=== PATIENT | female | born 1970 | race African-American/Black ===

== ENCOUNTER 2021-01-09 14:31 | Emergency (ER) | payer OTHER, SELFPAY ==
--- NOTE | ~2021-01-09 | XR_ITS ---
EXAMINATION: XR CHEST CLINICAL INFORMATION: Cough COMPARISON: None TECHNIQUE: Frontal view of the chest was obtained. FINDINGS: The cardiac silhouette does not appear enlarged. The thoracic aorta is tortuous. Hilar and mediastinal contours are otherwise unremarkable. The lungs are clear. There is no pleural effusion or pneumothorax. There are degenerative changes of the thoracic spine and curvature to the right. XR/XR chest 1V IMPRESSION: No evidence for acute disease in the chest.
[2021-01-09 14:56] VITALS: BP 156/94; PULSE 103; RESP 18; O2SAT 99; BMI 40.3
--- NOTE | 2021-01-09 16:22 | ED.URI ---
HPI - URI/Sore Throat General Chief Complaint: Upper Respiratory Symptoms Stated Complaint: cough, pain on right side, mucus Time Seen by Provider: 01/09/21 15:49 History of Present Illness HPI Narrative: patient complains of cough with pain in the right side of chest only when she coughs and sputum production for 2 days, there is no shortness of breath no fever no chills no wheezing Related Data Previous Rx's Medication Instructions Recorded azithromycin [Zithromax] 250 mg PO DAILY 4 Days #4 tab 01/09/21 Allergies Allergy/AdvReac Type Severity Reaction Status Date / Time doxycycline Allergy Unknown Verified 01/09/21 15:02 latex Allergy Unknown Verified 01/09/21 15:02 Review of Systems Review of Systems: positive for cough with sputum Negatives are no fever no chills no dizziness no weakness no fainting no feeling faint no headache no neck pain no shortness of breath no wheezing no abdominal pain no nausea or vomiting no leg swelling no calf pain or swelling no skin rash Yes all other systems are reviewed and are negative [facility] Past Medical History Source: nursing notes reviewed Medical History (Updated 01/10/21 @ 00:01 by Wm Amaro) delivery delivered COPD (chronic obstructive pulmonary disease) Depression HTN (hypertension) Pneumonitis Social History Social History Advance Directives: No Advance Directives Information Provided: No Patient : No Physical Exam Vital Signs: Vital Signs: Last Vital Signs Pulse 103 H 01/09/21 14:56 Resp 18 01/09/21 14:56 BP 156/94 H 01/09/21 14:56 Pulse Ox 99 01/09/21 14:56 Body Mass Index 40.3 general appearance no acute distress The eyes are clear no redness or discharge Sinuses no tenderness Pharynx is well hydrated no redness swelling or exudate, voice is normal Neck is supple Chest clear to auscultation bilateral no wheezing, full symmetric equal breath sounds no adventitious sounds Heart no murmur Abdomen soft nontender Extremities no edema, no calf swelling or tenderness Skin no rash Course Course Course Narrative: no pneumonia seen on x-ray and COVID test was negative Patient is well-appearing with no shortness of breath and is discharged with treatment for bronchitis MDM - URI/Sore Throat Lab Data Labs: Lab Results 01/09/21 Range/Units 16:30 COVID-19 ([facility]) Negative (Negative) COVID-19 Clin Com See Note Discharge Plan Discharge Clinical Impression: Bronchitis Patient Disposition: Home, Self-Care Additional Instructions: X-ray was normal COVID test was negative Your lungs were clear and the oxygen level was fine We are treating for bronchitis with Zithromax antibiotic, you got her 1st dose today and the next dose will be tomorrow Return for difficulty breathing, any worse condition or any concerns Prescriptions: New azithromycin [Zithromax] 250 mg tablet 250 mg PO DAILY 4 Days Qty: 4 RF: 0 Stand Alone Forms: Work/School Release Interventions: ED Discharge Assessment Last Done: 01/09/21 17:08 Discharge Date/Time: 01/09/21 17:09
[2021-01-09] MEDS: Azithromycin 500 MG TABLET PO (16:33)
[2021-01-09 16:48] LABS: COVID-19 Test Negative (Negative); IDNOW Serial# 9DD0AD1C
== END 2021-01-09 17:09 | disposition home or self-care (01) ==
PROVIDERS: Physician Assistant Medical; Emergency Provider Emergency Medicine; PCP Internal Medicine
DX: J40 Bronchitis, not specified as acute or chronic (principal); Z20.822 Contact with and (suspected) exposure to COVID-19; J44.9 Chronic obstructive pulmonary disease, unspecified; I10 Essential (primary) hypertension
CPT/HCPCS: 36415; 71045; 87635; 99283

== ENCOUNTER 2021-07-03 16:31 | Emergency (ER) | payer OTHER, SELFPAY ==
--- NOTE | ~2021-07-03 | XR_ITS ---
EXAMINATION: XR CHEST CLINICAL INFORMATION: Pneumonia symptoms COMPARISON: 01/09/2021 TECHNIQUE: Frontal view of the chest was obtained. FINDINGS: No significant abnormality is noted involving the heart, lungs, mediastinum, bony thorax or soft tissues. XR/XR chest 1V IMPRESSION: Unremarkable examination.
[2021-07-03 16:48] VITALS: BP 177/106; PULSE 108; RESP 18; TEMP 37.3; O2SAT 97; BMI 38.2
[2021-07-03 19:18] LABS: COVID-19 Test Negative (Negative); IDNOW Serial# 9DD0AD1C
--- NOTE | 2021-07-03 20:30 | ED_ITS ---
HPI - General Adult General Chief complaint: General Medical Stated complaint: back pain,sob,diarrhea Time Seen by Provider: 07/03/21 19:39 Source: patient Mode of arrival: ambulatory Limitations: no limitations History of Present Illness HPI narrative: Patient presents to ED for viral like syndrome. Patient states body aches, cough, chills, fatigue, fever of 100.6, cough and night sweats since last . Patient states she was around a person who was symptomatic and then the person inform her she was exposed to somebody was positive for COVID- 19. Patient denies any abdominal pain, but does states diarrhea. Patient denies any decreased appetite, dysuria, hematuria, flank pain, shortness of breath on exertion, pleuritic chest pain or chest pain at rest. Patient denies any history of HIV, hepatitis-C or any other immunocompromised diseases. Patient denies any IV drug use history. Related Data Allergies Allergy/AdvReac Type Severity Reaction Status Date / Time No Known Allergies Allergy Verified 07/03/21 19:39 Review of Systems Review of Systems: Yes all other systems are reviewed and are negative Constitutional: Constitutional: Reports as per HPI, Reports no additional constitutional complaints, Reports body ache(s), Reports chills, Reports fatigue and Reports fever(s) Eyes: Eyes: Reports as per HPI and Reports no additional eye complaints ENT: Reports system reviewed and no additional complaints, except as documented and Reports as per HPI Cardiovascular: Cardiovascular: Reports as per HPI and Reports no additional cardiovascular complaints Respiratory: Respiratory: Reports as per HPI, Reports no additional respiratory complaints and Reports cough Gastrointestinal: Gastrointestinal: Reports as per HPI and Reports no additional gastrointestinal complaints Musculoskeletal: Musculoskeletal: Reports no additional musculoskeletal complaints and Reports as per HPI Integumentary/Breasts: Skin/Breast: Reports system reviewed and no additional complaints, except as docu and Reports as per HPI Neurologic: Reports system reviewed and no additional complaints, except as documented and Reports as per HPI Psychiatric: Psychiatric: Reports no additional psychiatric complaints and Reports as per HPI Endocrine: Endocrine: Reports no additional endocrine complaints, Reports as per HPI and Reports fatigue PMFSH Social History Social History Advance Directives: No Advance Directives Information Provided: No Patient : No Physical Exam Vital Signs: Vital Signs: Last Vital Signs Temp 99.2 F 07/03/21 16:48 Pulse 108 H 07/03/21 16:48 Resp 18 07/03/21 16:48 BP 177/106 H 07/03/21 16:48 Pulse Ox 97 07/03/21 16:48 BMI result Body Mass Index 38.2 Const: General: cooperative, healthy appearing, comfortable, no acute distress, well developed, alert, awake and Physically active Orientation/co nsciousness: patient oriented x3 HENMT: Head: Yes normal to inspection, Yes No palpable skull fracture present, Yes normocephalic and Yes atraumatic Eyes: General: appearance normal, both eyes and all related structures Neck: Neck: Yes normal visual inspection, Yes full ROM, Yes no lymphadenopathy, Yes no meningeal signs, Yes trachea midline, Yes supple, No anterior neck swelling and No tender Chest: Chest palpation & inspection: normal inspection of the chest and normal palpation of entire chest wall Resp: Effort & Inspection: normal respiratory effort and able to speak in complete sentences Auscultation: clear to auscultation bilaterally Cardio: Jugular venous distension: no JVD Heart sounds: S1 normal heart sound present and S2 normal heart sound present GI: Inspection: Yes normal to inspection and No abdominal wall ecchymosis Palpation (GI): Soft to palpation, not firm, nontender, no guarding and not rigid : General: No CVA tenderness and Yes no CVA tenderness Back/Spine/Pelvis: Back: no CVA tenderness, No CVA tenderness and No back tenderness Neuro: General: patient oriented x3, gait normal, tone normal, moves all extremities, Normal light touch and pain sensation, no meningeal signs, no focal motor deficits and CN's II-XI intact bilaterally Cranial nerves: Yes CN's II- XII intact bilaterally and Yes Facial sensation intact/muscles of mastication intact Extrem: Other: Lower extremities negative for swelling, pitting edema, or calf tenderness. Psych: Appearance: grossly normal, well kempt and not disheveled Course Course Course Narrative: Initial COVID swab rapid test negative but will do repeat SARs with strep test and chest x-ray. Abdomen is totally soft and benign no indication for labs or abdominal CT scan. Reevaluation(s) Reevaluation #1: Patient's COVID swab, RSV, influenza, sores, and strep came back negative. chest x-ray is normal. Symptoms viral syndrome. Patient informed this may be a false negative and will need to stay home and be retested in 72 hours for COVID. Patient is safe for discharge. Abdomen soft, tender, and benign on palpation. negative for any spine tenderness. Not suspecting any kidney stones, epidural abscess, or cord compression. Patient denies any urinary symptoms. Not suspecting UTI. Not suspecting any abdominal etiology. Medical Decision Making MDM Narrative Medical decision making narrative: Viral syndrome Lab Data Labs: Lab Results 07/03/21 07/03/21 07/03/21 Range/Units 19:00 20:35 20:35 COVID-19 ([facility]) Negative (Negative) COVID-19 Clin Com See Note Influenza Type A (PCR) NEGATIVE (Negative) Influenza Type B (PCR) NEGATIVE (Negative) RSV RNA Qual (PCR) NEGATIVE (Negative) SARS-CoV-2 RNA (RT-PCR) NEGATIVE (Negative) S. pyogenes GrpA NICOLASA Negative (Negative) Discharge Plan Discharge Clinical Impression: Acute viral syndrome, Upper respiratory infection Patient Disposition: Home, Self-Care Instructions: Viral Syndrome (ED) Additional Instructions: Chest x-ray, strep, COVID, influenza, and RSV came back negative. Symptoms due to URI/viral syndrome. Return to the ED for any abdominal pain, nausea, vomiting, chest pain, shortness of breath, intractable fever, chills, weakness, dysuria, hematuria, shortness of breath, headacne, neck stiffness, or any other concerning symptoms. Please follow-up with primary care provider Stand Alone Forms: Work/School Release Interventions: ED Discharge Assessment Last Done: 07/03/21 22:08 Discharge Date/Time: 07/03/21 22:08 Print Language: Georgian
[2021-07-03 20:52] LABS: Strep A Nucleic Acid Negative (Negative)
[2021-07-03 21:23] LABS: Influenza A PCR NEGATIVE (Negative); Influenza B PCR NEGATIVE (Negative); Resp Syncy Virus RNA Qual PCR NEGATIVE (Negative); SARS COV2 PCR INHOUSE NEGATIVE (Negative)
== END 2021-07-03 22:08 | disposition home or self-care (01) ==
PROVIDERS: Physician Assistant; Emergency Provider Internal Medicine
DX: B34.9 Viral infection, unspecified (principal); J06.9 Acute upper respiratory infection, unspecified; Z20.822 Contact with and (suspected) exposure to COVID-19; R50.9 Fever, unspecified
CPT/HCPCS: 0241U; 36415; 71045; 87635; 87651; 99283

== ENCOUNTER 2021-12-11 22:57 | Emergency (ER) | payer OTHER, SELFPAY ==
--- NOTE | ~2021-12-11 | XR_ITS ---
EXAMINATION: XR CHEST CLINICAL INFORMATION: Rule out pneumonia COMPARISON: 07/03/2021 TECHNIQUE: Frontal view of the chest was obtained. FINDINGS: The lungs are well expanded. There is no focal consolidation, edema, or effusion. No pneumothorax. The cardiomediastinal silhouette is within normal limits. No acute osseous abnormality. XR/XR chest 1V IMPRESSION: Clear lungs.
[2021-12-11 23:14] VITALS: BP 158/102; PULSE 86; PULSE 94; RESP 18; TEMP 37.1; O2SAT 94; BMI 36.6
[2021-12-11 23:51] LABS: Basophils Absolute Auto 0.1 X10*3/uL (0.0-0.2); Basophils Percent Auto 1.3 % (0-2); Eosinophils Absolute Auto 0.2 X10*3/uL (0.0-0.4); Eosinophils Percent Auto 2.4 % (0-4); Hematocrit 46.2 % (37.0-47.0); Hemoglobin 15.4 g/dl (12.0-16.0); Imm Gran Abs Auto 0.02 X10*3/uL (0.00-0.03); Imm Gran Pct Auto 0.3 % (0.0-0.4); Lymphocytes Absolute Auto 3.5 X10*3/uL (1.2-4.9); Lymphocytes Percent Auto 48.7 % (20-40); MANUAL DIFF FLAG NO; Mean Corpuscular HGB Conc 33.3 g/dl (31.0-35.0); Mean Corpuscular Hemoglobin 31.3 pg (27.0-33.0); Mean Corpuscular Volume 93.9 fL (80.0-98.0); Mean Platelet Volume 11.1 fL (9.4-12.3); Monocytes Absolute Auto 0.8 X10*3/uL (0.1-1.2); Monocytes Percent Auto 10.9 % (2-11); Neutrophils Absolute Auto 2.6 x10*3/uL (2.0-8.3); Neutrophils Percent Auto 36.4 % (45-73); Platelet Count 267 X10*3/uL (160-400); Red Blood Count 4.92 X10*6/uL (4.20-5.50); Red Cell Distribution Width 13.9 % (11.0-16.0); White Blood Count 7.1 X10*3/uL (4.8-10.8)
--- NOTE | 2021-12-12 00:05 | ED.GENADULT ---
HPI - General Adult General Chief complaint: General Medical Stated complaint: covid+ Time Seen by Provider: 12/11/21 23:49 Source: patient and EMS Mode of arrival: EMS Limitations: no limitations History of Present Illness HPI narrative: Patient comes to emergency room complaining of flu-like symptoms for 7 days. Patient complaining of cough, body aches, right-sided earache, subjective fever, generalized malaise. Patient states she tested herself at home, she tested positive for COVID-19. Patient denies shortness of breath or chest pain, lower extremity pain or swelling Related Data Previous Rx's Medication Instructions Recorded azithromycin 250 mg tablet 250 mg PO DAILY 4 Days #4 tab 01/09/21 (Zithromax) albuterol sulfate 2.5 mg (3 mL) INHALATION Q4-6H PRN 12/12/21 #90 ml albuterol sulfate 90 mcg/actuation 2 puff INHALATION Q4-6H PRN #8.5 g 12/12/21 aerosol inhaler prednisone 50 mg tablet 50 mg PO DAILY #4 tab 12/12/21 Allergies Allergy/AdvReac Type Severity Reaction Status Date / Time doxycycline Allergy Unknown Verified 09/08/21 14:40 latex Allergy Unknown Verified 09/08/21 14:40 Review of Systems Review of Systems: Constitutional : No Weight loss, subjective fever, chills, fatigue and generalized malaise ENT/Mouth : No Hearing loss, No Ear Pain, No Nasal Congestion, No Sinus Pain, No Hoarseness, No sore throat, No Rhinorrhea, No Swallowing Difficulty Eyes: No Eye Pain, No Swelling, No Redness, No Foreign Body, No Discharge, No Vision Changes Cardiovascular : No Chest Pain, No SOB, No Dyspnea on Exertion, No Orthopnea, No Edema, No Palpitations Respiratory : Worsening dry Cough, No Sputum, no wheezing than usual, history of COPD. No Smoke Exposure, No Dyspnea Gastrointestinal : No Nausea, No Vomiting, No Diarrhea, No Constipation, No abdominal Pain, No Hematochezia, No Melena Genitourinary : no irregular bleeding, No Dysuria, No Urinary Frequency, No Hematuria, No Urinary Incontinence, No Urgency, No Flank Pain, No Urinary Flow Changes, No Hesitancy Musculoskeletal : No joint pain, No Myalgias, No Joint Swelling Skin : No Skin Lesions, No rash Neuro : No Weakness, No Numbness, No Paresthesias, No Loss of Consciousness, No Dizziness, No Headache Psych : No Anxiety/Panic, No Depression, No SI/HI/AH/VH, No Social Issues, Heme/Lymph: No Bruising, No Bleeding,No Lymphadenopathy Endocrine : No Polyuria, No Polydipsia, No Temperature Intolerance [facility] Past Medical History Medical History delivery delivered COPD (chronic obstructive pulmonary disease) Depression HTN (hypertension) Pneumonitis Social History Social History (System 09/08/21 @ 14:40 by Yarely Soliman) Advance Directives: No Physical Exam ED Vital Signs: Vital Signs - 24 hr 12/11/21 23:14 12/12/21 00:23 Temperature 98.7 F 98.9 F Pulse Rate 86 83 Respiratory Rate 18 16 Blood Pressure 110/88 Pulse Oximetry 94 94 BMI result Body Mass Index 36.6 Const Other: Appearance: Alert. Oriented X3. No acute distress. Eyes: Pupils equal, round and reactive to light. Mild bilateral scleral injection. ENT: Pharynx normal. Neck: Normal inspection. Neck supple. No lymph nodes noted. No crepitus CVS: Normal heart rate and rhythm. Pulses normal. Normal S1 and S2 Respiratory: No respiratory distress. Breath sounds normal. No Wheezing. No rales Abdomen: Soft and nontender. No rigidity. No distention. Skin: Skin warm and dry. Normal skin color. Normal skin turgor. Extremities: No lower extremity edema. No Lacerations. No Rash Neuro: Oriented X 3. No motor deficit. No sensory deficit. Moving all extremities. No slurred speech. CN 2 through 12 grossly intact Psych: calm, cooperative, normal affect Course Course Course Narrative: Were getting basic labs, a testing for COVID to confirm. Patient is on the 7th of COVID. Patient will likely benefit from monoclonal antibodies given her comorbidities. To be discussed with the patient once we get the confirmation a positive COVID test. COVID test positive, chest x-ray negative. Unfortunately, patient is outside of the window of treatment for both, Paxlovid and monoclonal antibodies. Fortunately, patient's oxygen saturation is in the high 90s exertion walking in her room. Patient states she has been using albuterol more than usual, patient is not hypoxic, will go ahead and start her on prednisone. Patient requesting refills for albuterol. Medical Decision Making Lab Data Result diagrams: 12/11/21 23:46 12/11/21 23:46 Labs: Lab Results 12/11/21 12/11/21 12/11/21 Range/Units 23:46 23:46 23:46 WBC 7.1 (4.8-10.8) X10*3/uL RBC 4.92 (4.20-5.50) X10*6/uL Hgb 15.4 (12.0-16.0) g/dl Hct 46.2 (37.0-47.0) % MCV 93.9 (80.0-98.0) fL MCH 31.3 (27.0-33.0) pg MCHC 33.3 (31.0-35.0) g/dl RDW 13.9 (11.0-16.0) % Plt Count 267 (160-400) X10*3/uL MPV 11.1 (9.4-12.3) fL Immature Gran % (Auto) 0.3 (0.0-0.4) % Neut % (Auto) 36.4 L (45-73) % Lymph % (Auto) 48.7 H (20-40) % Hancock % (Auto) 10.9 (2-11) % Eos % (Auto) 2.4 (0-4) % Baso % (Auto) 1.3 (0-2) % Lymph # (Auto) 3.5 (1.2-4.9) X10*3/uL Hancock # (Auto) 0.8 (0.1-1.2) X10*3/uL Eos # (Auto) 0.2 (0.0-0.4) X10*3/uL Baso # (Auto) 0.1 (0.0-0.2) X10*3/uL Abs Immat Gran (auto) 0.02 (0.00-0.03) X10*3/uL Absolute Neuts (auto) 2.6 (2.0-8.3) x10*3/uL Absolute Nucleated RBC 0.000 (0.0-0.012) X10*3/uL Nucleated RBC % (auto) 0.0 (0.0-0.2) /100WBC Sodium 141 (135-145) mmol/L Potassium 3.7 (3.3-5.1) mmol/L Chloride 99 (96-108) mmol/L Carbon Dioxide 31 H (22-29) mmol/L Anion Gap 15 (12-20) BUN 8 L (9-16) mg/dL Creatinine 0.83 (0.5-1.4) mg/dL Estim Creat Clear Calc 91.7 Estimated GFR > 60 Random Glucose 118 H (60-115) mg/dL Calcium 10.1 (8.4-10.2) mg/dL COVID-19 ([facility]) Positive A (Negative) COVID-19 Clin Com See Note Influenza Type A (NICOLASA) (Negative) Influenza Type B (NICOLASA) (Negative) Influenza A & B Note 12/11/21 Range/Units 23:58 WBC (4.8-10.8) X10*3/uL RBC (4.20-5.50) X10*6/uL Hgb (12.0-16.0) g/dl Hct (37.0-47.0) % MCV (80.0-98.0) fL MCH (27.0-33.0) pg MCHC (31.0-35.0) g/dl RDW (11.0-16.0) % Plt Count (160-400) X10*3/uL MPV (9.4-12.3) fL Immature Gran % (Auto) (0.0-0.4) % Neut % (Auto) (45-73) % Lymph % (Auto) (20-40) % Hancock % (Auto) (2-11) % Eos % (Auto) (0-4) % Baso % (Auto) (0-2) % Lymph # (Auto) (1.2-4.9) X10*3/uL Hancock # (Auto) (0.1-1.2) X10*3/uL Eos # (Auto) (0.0-0.4) X10*3/uL Baso # (Auto) (0.0-0.2) X10*3/uL Abs Immat Gran (auto) (0.00-0.03) X10*3/uL Absolute Neuts (auto) (2.0-8.3) x10*3/uL Absolute Nucleated RBC (0.0-0.012) X10*3/uL Nucleated RBC % (auto) (0.0-0.2) /100WBC Sodium (135-145) mmol/L Potassium (3.3-5.1) mmol/L Chloride (96-108) mmol/L Carbon Dioxide (22-29) mmol/L Anion Gap (12-20) BUN (9-16) mg/dL Creatinine (0.5-1.4) mg/dL Estim Creat Clear Calc Estimated GFR Random Glucose (60-115) mg/dL Calcium (8.4-10.2) mg/dL COVID-19 ([facility]) (Negative) COVID-19 Clin Com Influenza Type A (NICOLASA) Negative (Negative) Influenza Type B (NICOLASA) Negative (Negative) Influenza A & B Note See Note Imaging Data Chest x-ray: Radiologist's impression: FINDINGS: The lungs are well expanded. There is no focal consolidation, edema, or effusion. No pneumothorax. The cardiomediastinal silhouette is within normal limits. No acute osseous abnormality. XR/XR chest 1V IMPRESSION: Clear lungs. Discharge Plan Discharge Clinical Impression: COVID-19 Patient Disposition: Home, Self-Care Instructions: COVID-19 (Coronavirus Disease 2019) (ED) Additional Instructions: Please follow-up with your primary care physician tomorrow. If you have any worsening or new symptoms, please return to the emergency room or call 911 Prescriptions: New prednisone 50 mg tablet 50 mg PO DAILY Qty: 4 0RF albuterol sulfate 90 mcg/actuation HFA aerosol inhaler 2 puff inhalation Q4-6H PRN (Reason: shortness of breath or wheezing) Qty: 8.5 0RF albuterol sulfate 2.5 mg /3 mL (0.083 %) solution for nebulization 2.5 mg inhalation Q4-6H PRN (Reason: shortness of breath or wheezing) Qty: 90 0RF No Action azithromycin [Zithromax] 250 mg tablet 250 mg PO DAILY 4 Days Qty: 4 0RF Rx Instructions: First dose given today Sunday in ER, next dose tomorrow Sunday Stand Alone Forms: Work/School Release
[2021-12-12 00:07] LABS: COVID-19 Test Positive (Negative)
[2021-12-12 00:23] VITALS: BP 110/88; PULSE 83; RESP 16; TEMP 37.2; O2SAT 94
[2021-12-12 00:28] LABS: Influenza A Negative (Negative); Influenza B2 Negative (Negative)
[2021-12-12 00:32] LABS: Anion Gap 15 (12-20); Blood Urea Nitrogen 8 mg/dL (9-16); Calcium 10.1 mg/dL (8.4-10.2); Carbon Dioxide 31 mmol/L (22-29); Chloride 99 mmol/L (96-108); Creatinine Clr Calc Pharmacy 91.7; Estimated Glomerular Filt Rate > 60; Glucose Random 118 mg/dL (60-115); Potassium 3.7 mmol/L (3.3-5.1); Sodium 141 mmol/L (135-145)
[2021-12-12] MEDS: predniSONE 10 MG TABLET 50 MG PO (01:21)
== END 2021-12-12 01:28 | disposition home or self-care (01) ==
PROVIDERS: Emergency Provider Emergency Medicine
DX: U07.1 COVID-19 (principal)
CPT/HCPCS: 71045; 80048; 85025; 87502; 87635; 99283